=== PATIENT | female | born 1975 | race Caucasian/White ===

== ENCOUNTER 2018-05-06 08:56 | Inpatient (IN) | payer MEDICAID ==
[~2018-05-06] VITALS: Ht 170.2 cm; Wt 115.6 kg
[2018-05-06] MEDS ORDERED: ONDANSETRON ODT 4 MG PO ONE (09:30)
[2018-05-06] MEDS ORDERED: HYDROmorphone 2 MG/ML, 1ML IM ONE (09:30)
[2018-05-06] MEDS ORDERED: ONDANSETRON ODT 4 MG ONE (09:35)
[2018-05-06] MEDS ORDERED: HYDROmorphone 2 MG/ML, 1ML ONE (09:35)
[2018-05-06 09:58] LABS: ALANINE AMINOTRANSFERASE 31 U/L (12-78); ALBUMIN 2.4 g/dL (3.4-5.0); ANION GAP 10 mmol/L (5-15); CHLORIDE 105 mmol/L (98-107); CREATININE 2.26 mg/dL (0.55-1.02)
[2018-05-06 10:02] LABS: ALKALINE PHOSPHATASE 101 U/L (45-117); TOTAL PROTEIN 6.7 g/dL (6.4-8.2)
[2018-05-06 10:12] LABS: MICROSCOPIC INDICATED
[2018-05-06 10:15] LABS: CULTURE INDICATED? YES
[2018-05-06 10:30] LABS: MD YES; MEAN CORPUSCULAR HGB CONC 33.5 g/dL (32.4-35.8); MEAN CORPUSCULAR VOLUME 86.4 fL (80-100); MEAN PLATELET VOLUME 8.2 fL (7.4-10.4); PLATELET COUNT 97 x10^3/uL (130-400); RED BLOOD COUNT 4.17 x10^6/uL (3.82-5.3); RED CELL DISTRIBUTION WIDTH 14.5 % (9.6-15.2)
[2018-05-06] MEDS ORDERED: CEFTRIAXONE PMX 1GM/50ML 50 ML IVPB ONE (10:30)
[2018-05-06] MEDS ORDERED: SODIUM CHLORIDE FLUSH 10ML SYR IVF ONE (10:30)
[2018-05-06] MEDS ORDERED: SODIUM CHLORIDE 0.9% 1,000ML IVBOLUS ONE (10:30)
[2018-05-06] MEDS ORDERED: CEFTRIAXONE PMX 1GM/50ML 50 ML ONE (10:32)
[2018-05-06 10:35] LABS: BANDS%(MANUAL) 28 % (0-7); LYMPH#(MANUAL) 1.09 x10^3/uL (1-3.4); LYMPHS% (MANUAL) 5 % (22-44); METAMYELOCYTES# (MANUAL) 0.44 x10^3/uL (0-0); METAMYELOCYTES% (MANUAL) 2 % (0-1); MYELOCYTES# (MANUAL) 0.44 x10^3/uL (0-0); MYELOCYTES% (MANUAL) 2 % (0-0); SEG#(MANUAL) 13.73 x10^3/uL (1.8-6.8); SEGS% (MANUAL) 63 % (42-75)
[2018-05-06 10:36] LABS: <PLATELET ESTIMATE> DECREASED; <PLT MORPHOLOGY> NORMAL PLT MORPH; <RBC MORPHOLOGY> NORMAL
[2018-05-06] MEDS ORDERED: LIDOCAINE-MPF 1%, 5ML ONE (12:29)
[2018-05-06] MEDS ORDERED: morphine SULFATE 10 MG/ML, 1ML IVPush PRN (12:30)
[2018-05-06] MEDS ORDERED: CEFTRIAXONE PMX 1GM/50ML 50 ML IV SCH (12:30)
[2018-05-06] MEDS ORDERED: ONDANSETRON 2MG/ML, 2ML IVPush PRN (12:30)
[2018-05-06] MEDS ORDERED: DOCUSATE 100 MG CAPSULE PO PRN (12:30)
[2018-05-06] MEDS ORDERED: CYCLOBENZAPRINE 10 MG TABLET PO PRN (12:30)
[2018-05-06] MEDS ORDERED: BISACODYL 10 MG SUPP PR PRN (12:30)
[2018-05-06] MEDS ORDERED: POLYETHYLENE GLYCOL 17 GM PACKET PO PRN (12:30)
[2018-05-06 12:40] LABS: HEMOGLOBIN A1C 6.1 % (4.2-6.3)
[2018-05-06] MEDS ORDERED: CEFTRIAXONE PMX 1GM/50ML 50 ML IV ONE (13:00)
[2018-05-06] MEDS ORDERED: FENTANYL PF 100 MCG/2ML ONE (13:02)
[2018-05-06 14:03] VITALS: BP 91/54
[2018-05-06 14:09] VITALS: BP 91/54
[2018-05-06] MEDS: NS + 20MEQ KCL 1,000 ML IV SCH (14:42)
[2018-05-06] MEDS ORDERED: SODIUM CHLORIDE 0.9%, 500ML IVBOLUS ONE (16:00)
[2018-05-06 16:55] VITALS: BP 92/62
[2018-05-06 19:33] VITALS: BP 91/54
[2018-05-06] MEDS: ACETAMINOPHEN 325 MG TABLET PO PRN (19:39)
[2018-05-07] MEDS: NS + 20MEQ KCL 1,000 ML IV SCH ×3 (00:02→21:48)
[2018-05-07] MEDS: CEFTRIAXONE PMX 2GM/50ML 50 ML IV SCH ×2 (00:02→23:41)
[2018-05-07 01:20] VITALS: BP 99/50
[2018-05-07] MEDS: ACETAMINOPHEN 325 MG TABLET PO PRN (05:50)
[2018-05-07 06:03] LABS: MEAN CORPUSCULAR HEMOGLOBIN 28.8 pg (27.0-34.8); MEAN CORPUSCULAR HGB CONC 33.6 g/dL (32.4-35.8); MEAN CORPUSCULAR VOLUME 85.6 fL (80-100); RED BLOOD COUNT 3.97 x10^6/uL (3.82-5.3); RED CELL DISTRIBUTION WIDTH 14.8 % (9.6-15.2)
[2018-05-07 06:09] LABS: ANION GAP 5 mmol/L (5-15); CALCIUM 6.7 mg/dL (8.5-10.1); CHLORIDE 113 mmol/L (98-107); CREATININE 1.09 mg/dL (0.55-1.02)
[2018-05-07 06:21] LABS: MD YES
[2018-05-07 06:25] LABS: MEAN PLATELET VOLUME 8.5 fL (7.4-10.4); PLATELET COUNT 87 x10^3/uL (130-400)
[2018-05-07 06:26] LABS: BAND#(MANUAL) 1.86 x10^3/uL; BANDS%(MANUAL) 13 % (0-7); EOS#(MANUAL) 0.14 x10^3/uL (0.0-0.4); EOS% (MANUAL) 1 % (1-7); LYMPH#(MANUAL) 0.43 x10^3/uL (1-3.4); LYMPHS% (MANUAL) 3 % (22-44); MONOS#(MANUAL) 0.14 x10^3/uL (0.3-2.7); MONOS% (MANUAL) 1 % (2-9); SEG#(MANUAL) 11.73 x10^3/uL (1.8-6.8); SEGS% (MANUAL) 82 % (42-75)
[2018-05-07 06:27] LABS: <PLATELET ESTIMATE> DECREASED; <PLT MORPHOLOGY> NORMAL PLT MORPH; <RBC MORPHOLOGY> NORMAL
[2018-05-07 07:36] VITALS: BP 111/70
[2018-05-07] MEDS ORDERED: POTASSIUM CHLORIDE 20 MEQ TAB.ER.PRT PO ONE (12:00)
[2018-05-07] MEDS: CALCIUM CARBONATE 500 MG TABLET PO SCH ×3 (12:00→20:16)
[2018-05-07 13:10] VITALS: BP 114/75
[2018-05-07 19:55] VITALS: BP 110/71
[2018-05-08 00:23] VITALS: BP 134/98
[2018-05-08 05:14] LABS: MEAN CORPUSCULAR HEMOGLOBIN 28.6 pg (27.0-34.8); MEAN CORPUSCULAR HGB CONC 33.4 g/dL (32.4-35.8); MEAN CORPUSCULAR VOLUME 85.4 fL (80-100); MEAN PLATELET VOLUME 8.9 fL (7.4-10.4); PLATELET COUNT 100 x10^3/uL (130-400); RED BLOOD COUNT 4.07 x10^6/uL (3.82-5.3); RED CELL DISTRIBUTION WIDTH 14.8 % (9.6-15.2)
[2018-05-08 05:20] LABS: ALBUMIN 2.1 g/dL (3.4-5.0); ANION GAP 8 mmol/L (5-15); CALCIUM 8.2 mg/dL (8.5-10.1); CHLORIDE 111 mmol/L (98-107)
[2018-05-08 05:22] LABS: CREATININE 0.61 mg/dL (0.55-1.02)
[2018-05-08 06:02] LABS: MD YES
[2018-05-08 06:03] LABS: BAND#(MANUAL) 0.48 x10^3/uL; BANDS%(MANUAL) 4 % (0-7); LYMPH#(MANUAL) 1.82 x10^3/uL (1-3.4); LYMPHS% (MANUAL) 15 % (22-44)
[2018-05-08 06:04] LABS: MONOS#(MANUAL) 0.24 x10^3/uL (0.3-2.7); MONOS% (MANUAL) 2 % (2-9); SEG#(MANUAL) 9.56 x10^3/uL (1.8-6.8); SEGS% (MANUAL) 79 % (42-75)
[2018-05-08 06:05] LABS: <PLATELET ESTIMATE> DECREASED; <PLT MORPHOLOGY> NORMAL PLT MORPH; <RBC MORPHOLOGY> NORMAL
[2018-05-08] MEDS: NS + 20MEQ KCL 1,000 ML IV SCH ×2 (08:06→16:43)
[2018-05-08] MEDS: CALCIUM CARBONATE 500 MG TABLET PO SCH ×3 (08:06→23:24)
[2018-05-08 08:15] VITALS: BP 191/109
[2018-05-08] MEDS: hydrALAzine 20 MG/ML, 1ML IVPush PRN ×2 (08:20→14:02)
[2018-05-08 09:15] VITALS: BP 161/99
[2018-05-08 14:00] VITALS: BP 175/121
[2018-05-08 19:12] VITALS: BP 175/95
[2018-05-09 01:00] VITALS: BP 175/103
[2018-05-09] MEDS: CEFTRIAXONE PMX 2GM/50ML 50 ML IV SCH (02:14)
[2018-05-09 06:01] LABS: MEAN CORPUSCULAR HEMOGLOBIN 28.6 pg (27.0-34.8); MEAN CORPUSCULAR HGB CONC 33.5 g/dL (32.4-35.8); MEAN CORPUSCULAR VOLUME 85.2 fL (80-100); MEAN PLATELET VOLUME 8.6 fL (7.4-10.4); PLATELET COUNT 131 x10^3/uL (130-400); RED BLOOD COUNT 4.26 x10^6/uL (3.82-5.3); RED CELL DISTRIBUTION WIDTH 14.7 % (9.6-15.2)
[2018-05-09 06:08] LABS: CHLORIDE 107 mmol/L (98-107)
[2018-05-09 06:16] LABS: ALANINE AMINOTRANSFERASE 21 U/L (12-78); ALBUMIN 2.2 g/dL (3.4-5.0); ALKALINE PHOSPHATASE 107 U/L (45-117); ANION GAP 7 mmol/L (5-15); BILIRUBIN,TOTAL 0.5 mg/dL (0.2-1.0); CALCIUM 8.9 mg/dL (8.5-10.1); CREATININE 0.67 mg/dL (0.55-1.02); TOTAL PROTEIN 7.3 g/dL (6.4-8.2)
[2018-05-09 06:20] LABS: BASOPHILS # (AUTO) 0.02 x10^3/uL (0-0.1); BASOPHILS % (AUTO) 0 % (0-1); EOSINOPHILS # (AUTO) 0.13 x10^3/uL (0-0.4); EOSINOPHILS % (AUTO) 1 % (1-7); LYMPHOCYTES # (AUTO) 1.91 x10^3/uL (1-3.4); LYMPHOCYTES % (AUTO) 16 % (22-44); MD SCAN; MONOCYTES # (AUTO) 1.07 x10^3/uL (0.2-0.8); MONOCYTES % (AUTO) 9 % (2-9); NEUTROPHILS # (AUTO) 9.17 x10^3/uL (1.8-6.8); NEUTROPHILS % (AUTO) 75 % (42-75)
[2018-05-09 07:03] VITALS: BP 146/83
[2018-05-09] MEDS: NS + 20MEQ KCL 1,000 ML IV SCH ×2 (08:04→14:00)
[2018-05-09] MEDS: CALCIUM CARBONATE 500 MG TABLET PO SCH ×3 (08:04→22:52)
[2018-05-09] MEDS ORDERED: FENTANYL PF 100 MCG/2ML ONE ×4 (09:49→21:18)
[2018-05-09] MEDS ORDERED: NALOXONE 1 MG/ML, 2ML ONE (09:49)
[2018-05-09] MEDS ORDERED: LIDOCAINE-MPF 1%, 5ML ONE (10:16)
[2018-05-09] MEDS ORDERED: VISIPAQUE 320MG/ML, 50ML BOTTLE ONE (11:11)
[2018-05-09 12:46] VITALS: BP 170/110
[2018-05-09 12:52] LABS: AMPHETAMINE SCREEN, URINE Negative (Negative); BARBITURATE SCREEN, URINE Negative (Negative); BENZODIAZEPINE SCREEN, URINE Negative (Negative); CANNABINOID SCREEN, URINE Negative (Negative); COCAINE SCREEN, URINE Negative (Negative); METHADONE SCREEN, URINE Negative (Negative); OPIATE SCREEN, URINE Negative (Negative)
[2018-05-09] MEDS: D5%-0.45% NACL 1,000 ML IV SCH (14:24)
[2018-05-09] MEDS ORDERED: OMNIPAQUE 350 MG/ML, 50 ML BOTTLE ONE (21:00)
[2018-05-09] MEDS ORDERED: KETOROLAC 30 MG/1 ML ONE (21:07)
[2018-05-09] MEDS ORDERED: HYDROmorphone 1 MG/ML, 1ML IV PRN (21:30)
[2018-05-09] MEDS ORDERED: FENTANYL PF 100 MCG/2ML IV PRN (21:30)
[2018-05-09] MEDS ORDERED: PROCHLORPERAZINE 5 MG/ML, 2ML IV PRN (21:30)
[2018-05-09] MEDS ORDERED: OXYcodone 5 MG/5 ML ORAL.SOL UDC PO PRN (21:30)
[2018-05-09] MEDS ORDERED: hydrALAzine 20 MG/ML, 1ML IV PRN (21:30)
[2018-05-09] MEDS ORDERED: LABETALOL 5MG/ML, 20ML IV PRN (21:30)
[2018-05-09] MEDS ORDERED: MEPERIDINE/PF 25MG/0.5ML IVPush PRN (21:30)
[2018-05-09] MEDS ORDERED: DIPHENHYDRAMINE 50 MG/ML, 1ML IVPush PRN (21:30)
[2018-05-09] MEDS ORDERED: DEXAMETHASONE 4 MG/ML, 1ML ONE (21:31)
[2018-05-09] MEDS ORDERED: CEFAZOLIN 1,000 MG ONE (21:31)
[2018-05-09] MEDS ORDERED: PROPOFOL 10 MG/ML, 20ML ONE (21:31)
[2018-05-09] MEDS ORDERED: ONDANSETRON 2MG/ML, 2ML ONE (21:31)
[2018-05-09] MEDS ORDERED: OMNIPAQUE 350 MG/ML, 50 ML BOTTLE IV ONE (21:40)
[2018-05-09 23:59] VITALS: BP 127/84
[2018-05-10] MEDS: CEFTRIAXONE PMX 2GM/50ML 50 ML IV SCH (02:29)
[2018-05-10] MEDS: D5%-0.45% NACL 1,000 ML IV SCH (02:30)
[2018-05-10 03:30] VITALS: BP 125/83
[2018-05-10 06:04] LABS: ALBUMIN 2.2 g/dL (3.4-5.0); ANION GAP 7 mmol/L (5-15); CALCIUM 8.4 mg/dL (8.5-10.1); CHLORIDE 105 mmol/L (98-107)
[2018-05-10 06:08] LABS: ALANINE AMINOTRANSFERASE 18 U/L (12-78); ALKALINE PHOSPHATASE 94 U/L (45-117); BILIRUBIN,TOTAL 0.4 mg/dL (0.2-1.0); CREATININE 0.96 mg/dL (0.55-1.02); TOTAL PROTEIN 7.1 g/dL (6.4-8.2)
[2018-05-10 06:13] LABS: BASOPHILS # (AUTO) 0.03 x10^3/uL (0-0.1); BASOPHILS % (AUTO) 0 % (0-1); EOSINOPHILS # (AUTO) 0.01 x10^3/uL (0-0.4); EOSINOPHILS % (AUTO) 0 % (1-7); LYMPHOCYTES # (AUTO) 1.15 x10^3/uL (1-3.4); LYMPHOCYTES % (AUTO) 9 % (22-44); MD NO; MEAN CORPUSCULAR HEMOGLOBIN 28.6 pg (27.0-34.8); MEAN CORPUSCULAR HGB CONC 33.7 g/dL (32.4-35.8); MEAN PLATELET VOLUME 8.3 fL (7.4-10.4); MONOCYTES # (AUTO) 0.76 x10^3/uL (0.2-0.8); MONOCYTES % (AUTO) 6 % (2-9); NEUTROPHILS # (AUTO) 10.37 x10^3/uL (1.8-6.8); NEUTROPHILS % (AUTO) 84 % (42-75); PLATELET COUNT 159 x10^3/uL (130-400); RED BLOOD COUNT 3.76 x10^6/uL (3.82-5.3)
[2018-05-10 07:23] VITALS: BP 101/67
[2018-05-10] MEDS ORDERED: MAGNESIUM SULFATE PMX 2GM/50ML 50 ML IV ONE (07:30)
[2018-05-10] MEDS: CALCIUM CARBONATE 500 MG TABLET PO SCH (08:04)
[2018-05-10] MEDS ORDERED: CEFD300C37 PO (11:04)
[2018-05-10] MEDS ORDERED: CEFTRIAXONE PMX 2GM/50ML 50 ML IV SCH (11:30)
[2018-05-10 13:05] VITALS: BP 112/73
== END 2018-05-10 13:30 | disposition home or self-care (01) | DRG 854 ==
LOC: ED 09:52 → 4NOR 12:11 → DCLOUNGE 05-10 13:18
PROVIDERS: ADMIT Hospitalist; ATTEND Hospitalist
PROC: 0T933ZZ Drainage of Right Kidney Pelvis, Percutaneous Approach (ICD-10-PCS; 2018-05-06)
PROC: BT111ZZ Fluoroscopy of Right Kidney using Low Osmolar Contrast (ICD-10-PCS; 2018-05-06)
PROC: BT1D1ZZ Fluoroscopy of Right Kidney, Ureter and Bladder using Low Osmolar Contrast (ICD-10-PCS; 2018-05-09)
PROC: 0TP5X0Z Removal of Drainage Device from Kidney, External Approach (ICD-10-PCS; 2018-05-09)
PROC: 0T738DZ Dilation of Right Kidney Pelvis with Intraluminal Device, Via Natural or Artificial Opening Endoscopic (ICD-10-PCS; principal; 2018-05-09 17:45)
DX: A41.9 Sepsis, unspecified organism (principal); E44.0 Moderate protein-calorie malnutrition; N13.6 Pyonephrosis; N17.9 Acute kidney failure, unspecified; B96.20 Unspecified Escherichia coli [E. coli] as the cause of diseases classified elsewhere; T83.012A Breakdown (mechanical) of nephrostomy catheter, initial encounter; Z68.39 Body mass index [BMI] 39.0-39.9, adult; D69.6 Thrombocytopenia, unspecified; Z51.5 Encounter for palliative care; R73.9 Hyperglycemia, unspecified; E83.51 Hypocalcemia; E87.6 Hypokalemia; F41.1 Generalized anxiety disorder; Y73.2 Prosthetic and other implants, materials and accessory gastroenterology and urology devices associated with adverse incidents; Z82.49 Family history of ischemic heart disease and other diseases of the circulatory system; Z83.3 Family history of diabetes mellitus; Z93.6 Other artificial openings of urinary tract status; Y92.89 Other specified places as the place of occurrence of the external cause
CPT/HCPCS: 36415; 50432; 74176; 74420; 76937; 76942; 80048; 80053; 80307; 81001; 82040; 83036; 83735; 84100; 84703; 85025; 87040; 87077; 87086; 87186; 96374; 99156; 99157; 99285; C1894; G0378; J0690; J0696; J1100; J1170; J1885; J2405; J2704; J3010; J3480; Q0162; Q9967; C1729; C1758; C1769; C2617; J0360; J2270; J2310; J3475; J7030; J7040

== ENCOUNTER 2018-08-29 15:29 | Emergency (ER) | payer SELFPAY ==
[~2018-08-29] VITALS: Ht 170.2 cm; Wt 105.0 kg
[~2018-08-29 15:29] MED LIST: CEFD300C37 PO; No meds per pt.
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
[2018-08-29 16:19] LABS: BASOPHILS # (AUTO) 0.02 x10^3/uL (0-0.1); BASOPHILS % (AUTO) 0 % (0-1); EOSINOPHILS # (AUTO) 0.15 x10^3/uL (0-0.4); EOSINOPHILS % (AUTO) 2 % (1-7); LYMPHOCYTES # (AUTO) 1.78 x10^3/uL (1-3.4); LYMPHOCYTES % (AUTO) 20 % (22-44); MD NO; MEAN CORPUSCULAR HEMOGLOBIN 26.2 pg (27.0-34.8); MEAN CORPUSCULAR HGB CONC 32.5 g/dL (32.4-35.8); MEAN CORPUSCULAR VOLUME 80.6 fL (80-100); MEAN PLATELET VOLUME 6.8 fL (7.4-10.4); MONOCYTES # (AUTO) 0.59 x10^3/uL (0.2-0.8); MONOCYTES % (AUTO) 7 % (2-9); NEUTROPHILS # (AUTO) 6.15 x10^3/uL (1.8-6.8); NEUTROPHILS % (AUTO) 71 % (42-75); PLATELET COUNT 320 x10^3/uL (130-400); RED BLOOD COUNT 4.45 x10^6/uL (3.82-5.3); RED CELL DISTRIBUTION WIDTH 15.5 % (9.6-15.2)
[2018-08-29 16:28] LABS: ALANINE AMINOTRANSFERASE 26 U/L (12-78); ALBUMIN 3.3 g/dL (3.4-5.0); ANION GAP 4 mmol/L (5-15); CALCIUM 8.4 mg/dL (8.5-10.1); CHLORIDE 112 mmol/L (98-107); CREATININE 0.97 mg/dL (0.55-1.02)
[2018-08-29 16:29] LABS: SALICYLATE LEVEL < 1.7 mg/dL (2.8-20.0)
[2018-08-29 16:33] LABS: ACETAMINOPHEN < 2 mcg/mL (10-30); ALKALINE PHOSPHATASE 72 U/L (45-117); BILIRUBIN,TOTAL 0.4 mg/dL (0.2-1.0); TOTAL PROTEIN 8.3 g/dL (6.4-8.2)
[2018-08-29 16:39] LABS: AMPHETAMINE SCREEN, URINE Positive (Negative); BARBITURATE SCREEN, URINE Negative (Negative); BENZODIAZEPINE SCREEN, URINE Negative (Negative); CANNABINOID SCREEN, URINE Negative (Negative); COCAINE SCREEN, URINE Negative (Negative); METHADONE SCREEN, URINE Negative (Negative); OPIATE SCREEN, URINE Negative (Negative)
--- NOTE | 2018-08-29 16:50 | NUR ---
JAY REMAINS AT BS.
--- NOTE | 2018-08-29 17:39 | NUR ---
[facility] called for consult
--- NOTE | 2018-08-29 17:40 | NUR ---
ASSUMED CARE. PT HAS SUPERFICIAL WOUNDS LEFT WRIST CLEANED WITH NORMAL SALINE. PT AMBULATED TO BATHROOM WITHOUT ASSISTANCE. SITTER OUTSIDE ROOM.
[2018-08-29 17:41] VITALS: BP 134/75
--- NOTE | 2018-08-29 18:12 | NUR ---
laila returned call and will come to see pt. eta [phone]
--- NOTE | 2018-08-29 19:00 | NUR ---
REPORT RECEIVED FROM YG VILLALOBOS. PT APPEARS ANXIOUS, AT BESIDE
--- NOTE | 2018-08-29 19:17 | NUR ---
REPORT TO VARUN RONQUILLO
--- NOTE | 2018-08-29 19:43 | NUR ---
PT GIVEN MEAL TRAY, [facility] AT BS, NO DISTRESS NOTED
--- NOTE | 2018-08-29 21:32 | NUR ---
Patient/Caregiver given discharge instructions and they have confirmed that they understand the instructions. Patient ambulatory with steady gait.
== END 2018-08-29 21:34 | disposition home or self-care (01) ==
LOC: ED 17:04
DX: R45.851 Suicidal ideations (principal); Z90.49 Acquired absence of other specified parts of digestive tract
CPT/HCPCS: 36415; 80053; 80307; 80329; 84703; 85025; 99284; G0480

== ENCOUNTER 2019-05-11 11:41 | Emergency (ER) | payer MEDICAID ==
[~2019-05-11] VITALS: Ht 170.2 cm; Wt 113.9 kg
--- NOTE | 2019-05-11 12:22 | NUR ---
PT IN BED, PROVIDED WITH WARM BLANKETS. ATTACHED TO MONITORS. LAB AT BEDSIDE FOR BLOOD DRAW. PT DENIES ANY FURTHER NEEDS OR CONCERNS AT THIS TIME. CALL LIGHT IN REACH.
[2019-05-11 12:34] LABS: BASOPHILS # (AUTO) 0.03 x10^3/uL (0-0.1); BASOPHILS % (AUTO) 1 % (0-1); EOSINOPHILS # (AUTO) 0.26 x10^3/uL (0-0.4); EOSINOPHILS % (AUTO) 4 % (1-7); HCT (SEDRATE) 33.9 % (34.6-47.8); LYMPHOCYTES # (AUTO) 1.84 x10^3/uL (1-3.4); LYMPHOCYTES % (AUTO) 26 % (22-44); MD NO; MEAN CORPUSCULAR HEMOGLOBIN 24.3 pg (27.0-34.8); MEAN CORPUSCULAR HGB CONC 31.1 g/dL (32.4-35.8); MEAN CORPUSCULAR VOLUME 78.2 fL (80-100); MEAN PLATELET VOLUME 7.1 fL (7.4-10.4); MONOCYTES # (AUTO) 0.44 x10^3/uL (0.2-0.8); MONOCYTES % (AUTO) 6 % (2-9); NEUTROPHILS # (AUTO) 4.51 x10^3/uL (1.8-6.8); NEUTROPHILS % (AUTO) 64 % (42-75); PLATELET COUNT 337 x10^3/uL (130-400); RED BLOOD COUNT 4.41 x10^6/uL (3.82-5.3); RED CELL DISTRIBUTION WIDTH 17.3 % (9.6-15.2)
[2019-05-11 12:48] LABS: ALANINE AMINOTRANSFERASE 23 U/L (12-78); C-REACTIVE PROTEIN, QUANT 0.45 mg/dL (0.02-0.49); CALCIUM 8.3 mg/dL (8.5-10.1); CREATININE 0.91 mg/dL (0.55-1.02)
[2019-05-11 12:53] LABS: HEMOGLOBIN A1C 6.3 % (4.2-6.3)
[2019-05-11 12:56] LABS: ALKALINE PHOSPHATASE 76 U/L (45-117); BILIRUBIN,TOTAL 0.2 mg/dL (0.2-1.0); TOTAL PROTEIN 7.7 g/dL (6.4-8.2)
[2019-05-11 13:13] LABS: ANION GAP 5 mmol/L (5-15); CHLORIDE 108 mmol/L (98-107)
--- NOTE | 2019-05-11 13:20 | NUR ---
PT RESTING IN BED. DENIES CURRENT NEEDS OR CONCERNS. CALL LIGHT IN REACH.
[2019-05-11 13:51] VITALS: BP 147/84
== END 2019-05-11 14:18 | disposition home or self-care (01) ==
LOC: ED 14:04
DX: M79.672 Pain in left foot (principal); D50.9 Iron deficiency anemia, unspecified; Z90.89 Acquired absence of other organs
CPT/HCPCS: 36415; 80053; 83036; 83880; 84443; 85025; 85651; 86140; 93005; 99284

== ENCOUNTER 2019-06-28 15:10 | Outpatient (CLI) | payer MEDICAID | END 2019-06-28 23:59 | disposition home or self-care (01) | LOC: CFH 15:10 | PROVIDERS: ATTEND Student in an Organized Health Care Education/Training Program | DX: K44.9 Diaphragmatic hernia without obstruction or gangrene (principal); N13.30 Unspecified hydronephrosis; N20.0 Calculus of kidney | CPT/HCPCS: 74176 ==

== ENCOUNTER 2020-08-13 22:06 | Emergency (ER) | payer MEDICAID ==
[~2020-08-13] VITALS: Ht 170.2 cm; Wt 126.3 kg
[2020-08-13 22:18] VITALS: BP 173/91
[2020-08-13 22:50] LABS: BASOPHILS % (AUTO) 1 % (0-1); EOSINOPHILS % (AUTO) 5 % (1-7); LYMPHOCYTES % (AUTO) 31 % (22-44); MEAN CORPUSCULAR HEMOGLOBIN 24.3 pg (27.0-34.8); MEAN CORPUSCULAR HGB CONC 32.5 g/dL (32.4-35.8); MEAN PLATELET VOLUME 6.7 fL (7.4-10.4); MONOCYTES % (AUTO) 10 % (2-9); NEUTROPHILS % (AUTO) 54 % (42-75); PLATELET COUNT 351 x10^3/uL (130-400); RED BLOOD COUNT 4.29 x10^6/uL (3.82-5.3); RED CELL DISTRIBUTION WIDTH 17.3 % (9.6-15.2)
[2020-08-13 22:51] LABS: MD NO
[2020-08-13 22:59] LABS: ALBUMIN 2.9 g/dL (3.4-5.0); ANION GAP 8 mmol/L (5-15); CALCIUM 8.6 mg/dL (8.5-10.1); CHLORIDE 108 mmol/L (98-107); CREATININE 0.86 mg/dL (0.55-1.02)
[2020-08-13] MEDS ORDERED: SULFAMETH./TRIMETHOPRIM DS 800MG/160MG TABLET ONE (23:26)
[2020-08-13] MEDS ORDERED: CEPHALEXIN 500 MG CAPSULE ONE (23:26)
[2020-08-13] MEDS ORDERED: CEPHALEXIN 500 MG CAPSULE PO ONE (23:30)
[2020-08-13] MEDS ORDERED: SULFAMETH./TRIMETHOPRIM DS 800MG/160MG TABLET PO ONE (23:30)
== END 2020-08-14 01:32 | disposition home or self-care (01) ==
LOC: ED 08-14 01:12
DX: L03.115 Cellulitis of right lower limb (principal); M79.89 Other specified soft tissue disorders; M79.604 Pain in right leg; Z90.89 Acquired absence of other organs
CPT/HCPCS: 36415; 80048; 82040; 85025; 99285

== ENCOUNTER 2020-10-29 03:06 | Emergency (ER) | payer MEDICAID ==
[~2020-10-29] VITALS: Ht 170.2 cm; Wt 124.3 kg
[2020-10-29 03:09] VITALS: BP 144/83
--- NOTE | 2020-10-29 03:23 | NUR ---
RIGHT LEG PAIN AND SWELLING, HX OF CELLULITIS
[2020-10-29] MEDS ORDERED: SULFAMETH./TRIMETHOPRIM DS 800MG/160MG TABLET ONE (03:26)
[2020-10-29] MEDS ORDERED: CEPHALEXIN 500 MG CAPSULE ONE (03:26)
[2020-10-29] MEDS ORDERED: SULFAMETH./TRIMETHOPRIM DS 800MG/160MG TABLET PO ONE (03:30)
[2020-10-29] MEDS ORDERED: CEPHALEXIN 500 MG CAPSULE PO ONE (03:30)
== END 2020-10-29 04:39 | disposition home or self-care (01) ==
LOC: ED 03:30
DX: L03.115 Cellulitis of right lower limb (principal); M79.661 Pain in right lower leg
CPT/HCPCS: 99284

== ENCOUNTER 2020-11-04 20:35 | Inpatient (IN) | payer MEDICAID ==
[~2020-11-04] VITALS: Ht 170.2 cm; Wt 128.1 kg
--- NOTE | 2020-11-04 20:57 | NUR ---
PT PRESENTS TO THE ER WITH RIGHT LOWER LEG THAT IS RED, SWOLLEN AND PAINFUL. PATIENT STATED SHE CAME IN A WEEK AGO FOR CELLULITIS IN THAT LEG, BUT THINKS SHE MESSED UP THE ANTIBIOTICS SHE WAS GIVEN. PT HOOKED TO MONITORS AND RESTING ON GUGERRI.
--- NOTE | 2020-11-04 21:11 | NUR ---
PT TO US
[2020-11-04] MEDS ORDERED: HYDROcodone/APAP 5/325 TABLET ONE (21:13)
[2020-11-04 21:27] LABS: BASOPHILS % (AUTO) 1 % (0-1); EOSINOPHILS % (AUTO) 2 % (1-7); LYMPHOCYTES % (AUTO) 26 % (22-44); MEAN CORPUSCULAR HEMOGLOBIN 23.9 pg (27.0-34.8); MEAN PLATELET VOLUME 6.5 fL (7.4-10.4); MONOCYTES % (AUTO) 8 % (2-9); NEUTROPHILS % (AUTO) 64 % (42-75); PLATELET COUNT 512 x10^3/uL (130-400); RED BLOOD COUNT 4.05 x10^6/uL (3.82-5.3); RED CELL DISTRIBUTION WIDTH 19.1 % (9.6-15.2)
[2020-11-04 21:30] LABS: MD NO
[2020-11-04] MEDS ORDERED: CEFTRIAXONE 1,000 MG in DEXTROSE 5% 50 ML IVPB ONE (21:30)
[2020-11-04] MEDS ORDERED: HYDROcodone/APAP 5/325 TABLET PO ONE (21:30)
[2020-11-04] MEDS ORDERED: VANCOMYCIN 2,500 MG in SODIUM CHLORIDE 0.9% 500 ML IV ONE (21:30)
[2020-11-04] MEDS ORDERED: VANCOMYCIN PER PHARMACY MC PRN ×2 (21:30→23:30)
[2020-11-04 21:39] LABS: ALBUMIN 2.2 g/dL (3.4-5.0); ANION GAP 6 mmol/L (5-15); CALCIUM 8.4 mg/dL (8.5-10.1); CHLORIDE 107 mmol/L (98-107); CREATININE 0.89 mg/dL (0.55-1.02)
--- NOTE | 2020-11-04 21:46 | NUR ---
PT BACK FROM US AT THIS TIME
--- NOTE | 2020-11-04 22:10 | NUR ---
20 G IV TO RIGHT AC, 2 BLOOD CULTURES DRAWN AND SENT TO LAB, MEDICATION STARTED.
--- NOTE | 2020-11-04 22:50 | NUR ---
ROCEPHIN GIVEN, VANCO STARTED
--- NOTE | 2020-11-04 22:55 | NUR ---
HOSPITALIST AT BEDSIDE FOR ADMIT
--- NOTE | 2020-11-04 23:00 | NUR ---
Pt to be admitted to MEDICAL, room 370. Report called to [facility].
[2020-11-04 23:23] LABS: ALANINE AMINOTRANSFERASE 28 U/L (12-78)
[2020-11-04 23:24] LABS: ALKALINE PHOSPHATASE 77 U/L (45-117); BILIRUBIN,TOTAL 0.2 mg/dL (0.2-1.0); TOTAL PROTEIN 7.8 g/dL (6.4-8.2)
[2020-11-04] MEDS ORDERED: ONDANSETRON 2MG/ML, 2ML IVPush PRN (23:30)
[2020-11-04] MEDS ORDERED: LACTATED RINGERS 1,000 ML IV SCH (23:30)
[2020-11-04] MEDS ORDERED: LABETALOL 5MG/ML, 20ML IVPush PRN (23:30)
[2020-11-04] MEDS: ENOXAPARIN 30 MG/0.3 ML SQ SCH (23:30)
[2020-11-04 23:40] LABS: BILIRUBIN, DIRECT < 1.0 mg/dL (0.1-0.2)
[2020-11-04] MEDS ORDERED: PHARMACOKINETIC CONSULTATION MC ONE (23:45)
[2020-11-04] MEDS ORDERED: PHARMACOKINETIC MONITORING MC PRN (23:45)
[2020-11-04 23:59] VITALS: BP 125/79
[2020-11-05] MEDS: AMPICILLIN/SULBACTAM 3 GM in SODIUM CHLORIDE 0.9% 100 ML IV SCH ×4 (01:17→20:02)
[2020-11-05 02:16] VITALS: BP 145/85
[2020-11-05 03:36] VITALS: BP 125/79
[2020-11-05 07:09] VITALS: BP 134/80
[2020-11-05] MEDS: SENNA/DOCUSATE TABLET PO SCH (09:12)
[2020-11-05] MEDS: VANCOMYCIN 2,000 MG in SODIUM CHLORIDE 0.9% 500 ML IV SCH ×2 (09:12→21:26)
[2020-11-05 12:07] LABS: HCG UR SG 1.019 (1.003-1.030)
[2020-11-05] MEDS: ENOXAPARIN 30 MG/0.3 ML SQ SCH ×2 (12:13→23:30)
[2020-11-05 12:24] LABS: AMPHETAMINE SCREEN, URINE Positive (Negative); BARBITURATE SCREEN, URINE Negative (Negative); BENZODIAZEPINE SCREEN, URINE Negative (Negative); CANNABINOID SCREEN, URINE Negative (Negative); COCAINE SCREEN, URINE Negative (Negative); METHADONE SCREEN, URINE Negative (Negative); OPIATE SCREEN, URINE Positive (Negative)
[2020-11-05 12:30] VITALS: BP 132/85
[2020-11-05] MEDS: metFORMIN XR 500 MG TAB.ER.24H PO SCH (13:47)
[2020-11-05 19:25] VITALS: BP 136/77
[2020-11-05] MEDS: ACETAMINOPHEN 325 MG TABLET PO PRN (19:56)
[2020-11-06 01:02] VITALS: BP 137/81
[2020-11-06] MEDS: AMPICILLIN/SULBACTAM 3 GM in SODIUM CHLORIDE 0.9% 100 ML IV SCH ×4 (02:11→19:36)
[2020-11-06 06:50] VITALS: BP 146/85
[2020-11-06] MEDS: metFORMIN XR 500 MG TAB.ER.24H PO SCH (08:36)
[2020-11-06] MEDS: SENNA/DOCUSATE TABLET PO SCH (08:36)
[2020-11-06 08:37] LABS: BASOPHILS % (AUTO) 0 % (0-1); EOSINOPHILS % (AUTO) 2 % (1-7); LYMPHOCYTES % (AUTO) 20 % (22-44); MEAN CORPUSCULAR HEMOGLOBIN 24.1 pg (27.0-34.8); MEAN CORPUSCULAR HGB CONC 32.4 g/dL (32.4-35.8); MEAN PLATELET VOLUME 6.4 fL (7.4-10.4); MONOCYTES % (AUTO) 6 % (2-9); NEUTROPHILS % (AUTO) 71 % (42-75); PLATELET COUNT 582 x10^3/uL (130-400); RED BLOOD COUNT 4.32 x10^6/uL (3.82-5.3); RED CELL DISTRIBUTION WIDTH 19.3 % (9.6-15.2)
[2020-11-06 08:40] LABS: MD NO
[2020-11-06 08:46] LABS: ALANINE AMINOTRANSFERASE 25 U/L (12-78); ALBUMIN 2.2 g/dL (3.4-5.0); CALCIUM 8.2 mg/dL (8.5-10.1); CREATININE 0.64 mg/dL (0.55-1.02)
[2020-11-06 08:49] LABS: ALKALINE PHOSPHATASE 75 U/L (45-117); BILIRUBIN,TOTAL 0.2 mg/dL (0.2-1.0); TOTAL PROTEIN 8.4 g/dL (6.4-8.2); VANCOMYCIN,TROUGH 16.4 mcg/mL (5.0-10.0)
[2020-11-06 09:06] LABS: ANION GAP 4 mmol/L (5-15); CHLORIDE 106 mmol/L (98-107)
[2020-11-06] MEDS: VANCOMYCIN 2,000 MG in SODIUM CHLORIDE 0.9% 500 ML IV SCH (09:57)
[2020-11-06] MEDS: ENOXAPARIN 30 MG/0.3 ML SQ SCH ×2 (10:53→23:30)
[2020-11-06 13:00] VITALS: BP 142/82
[2020-11-06 18:45] VITALS: BP 157/95
[2020-11-06] MEDS: ACETAMINOPHEN 325 MG TABLET PO PRN (20:34)
[2020-11-06] MEDS: VANCOMYCIN 2,300 MG in SODIUM CHLORIDE 0.9% 500 ML IV SCH (22:05)
[2020-11-07 00:19] VITALS: BP 176/114
[2020-11-07 00:35] VITALS: BP 151/82
[2020-11-07] MEDS: AMPICILLIN/SULBACTAM 3 GM in SODIUM CHLORIDE 0.9% 100 ML IV SCH ×2 (02:11→09:14)
[2020-11-07 06:33] VITALS: BP 157/93
[2020-11-07] MEDS: SENNA/DOCUSATE TABLET PO SCH (09:14)
[2020-11-07] MEDS: metFORMIN XR 500 MG TAB.ER.24H PO SCH (09:14)
[2020-11-07] MEDS ORDERED: METF500T3 PO (10:58)
[2020-11-07] MEDS ORDERED: DOXY100C2 PO (10:58)
[2020-11-07] MEDS ORDERED: AMOX1TAB64 PO (10:58)
[2020-11-07] MEDS: ENOXAPARIN 30 MG/0.3 ML SQ SCH (11:30)
[2020-11-07] MEDS: VANCOMYCIN 2,300 MG in SODIUM CHLORIDE 0.9% 500 ML IV SCH (11:47)
== END 2020-11-07 13:15 | disposition home or self-care (01) | DRG 603 ==
LOC: ED 20:55 → EDIP 22:44 → 3N 23:24 → DCLOUNGE 11-07 13:05
PROVIDERS: ADMIT Family Medicine; ATTEND Hospitalist
DX: L03.115 Cellulitis of right lower limb (principal); Z68.41 Body mass index [BMI] 40.0-44.9, adult; E11.65 Type 2 diabetes mellitus with hyperglycemia; D50.9 Iron deficiency anemia, unspecified; E66.9 Obesity, unspecified; F15.10 Other stimulant abuse, uncomplicated; E88.09 Other disorders of plasma-protein metabolism, not elsewhere classified; Z87.442 Personal history of urinary calculi; Z82.49 Family history of ischemic heart disease and other diseases of the circulatory system
CPT/HCPCS: 36415; 80048; 80053; 80202; 80307; 81025; 82040; 82247; 82248; 83036; 83605; 83880; 84075; 84155; 84450; 84460; 85025; 87040; 96374; 99285; G0378; J0295; J0696; J3370; J7040; J7120